=== PATIENT | male | born 1985 | race Caucasian/White ===

== ENCOUNTER 2016-06-02 19:31 | Emergency (ER) | payer MEDICAID ==
[~2016-06-02] VITALS: Ht 162.6 cm; Wt 115.7 kg
[2016-06-02 19:40] VITALS: BP 140/90
[2016-06-02] MEDS ORDERED: TDAP [DIPH/PERTUSSIS/TET] 0.5 ML VIAL IM ONE ×2 (20:23→20:30)
--- NOTE | 2016-06-02 20:50 | NUR ---
EMT AT BEDSIDE FOR WOUND CARE
== END 2016-06-02 20:53 | disposition home or self-care (01) ==
LOC: ER 19:36
DX: S81.851A Open bite, right lower leg, initial encounter (principal); F17.200 Nicotine dependence, unspecified, uncomplicated; G47.30 Sleep apnea, unspecified; W54.0XXA Bitten by dog, initial encounter; Y93.89 Activity, other specified; Y92.89 Other specified places as the place of occurrence of the external cause; Y99.9 Unspecified external cause status
CPT/HCPCS: 90471; 90715; 99283; 99406; A4606; Z7610

== ENCOUNTER 2016-06-29 18:12 | Emergency (ER) | payer MEDICAID ==
[~2016-06-29] VITALS: Ht 162.6 cm; Wt 110.7 kg
[2016-06-29 18:17] VITALS: BP 125/71
== END 2016-06-29 18:30 | disposition home or self-care (01) ==
LOC: ER 18:14
DX: R45.4 Irritability and anger (principal)
CPT/HCPCS: A4606; Z7502; Z7610

== ENCOUNTER 2017-01-22 15:33 | Emergency (ER) | payer SELFPAY ==
[~2017-01-22] VITALS: Ht 162.6 cm; Wt 110.7 kg
[2017-01-22 15:39] VITALS: BP 135/84
== END 2017-01-22 15:49 | disposition home or self-care (01) ==
LOC: ER 15:34
DX: H60.8X1 Other otitis externa, right ear (principal)
CPT/HCPCS: A4606; Z7610